=== PATIENT | male | born 2000 | race Caucasian/White ===

== ENCOUNTER → 2018-11-12 | Outpatient (CLI) | payer OTHER ==
--- NOTE | 2018-11-12 10:24 | RADIOLOGY REPORT (SQ) ---
EXAM DESCRIPTION: DUPLEX ART/NATHALY FLOW COMPLETE COMPLETED DATE/TIME: 11/12/2018 9:02 am REASON FOR STUDY: JOSE (I70.1) COMPARISON: None. TECHNIQUE: Realtime and static grayscale images acquired. Selected color Doppler, velocities and spe ctral images recorded. LIMITATIONS: None. FINDINGS: RIGHT KIDNEY: RENAL ARTERY VELOCITIES: 75 cm/sec. Segmental artery velocity 56 cm/sec. RENAL VEIN: Color doppler flow present, patent. VELOCITY RATIO: 0.5. Normal waveforms. KIDNEY: Normal size. No significant pathology. LEFT KIDNEY: RENAL ARTERY VELOCITIES: 76 cm/sec. Segmental artery velocity 39 cm/sec. RENAL VEIN: Color doppler flow present, patent. VELOCITY RATIO: 0.5. Normal waveforms. KIDNEY: Normal size. No significant pathology. BLADDER: Normal. OTHER: No other significant finding. IMPRESSION: NO DOPPLER EVIDENCE OF HEMODYNAMICALLY SIGNIFICANT RENAL ARTERY STENOSIS. COMMENT: NORMAL RENAL ARTERY/AORTA VELOCITY RATIO IS LESS THAN OR EQUAL TO 3.5. TECHNICAL DOCUMENTATION: JOB ID: [id number]- All Rights Reserved Reading location - IP/workstation name: [email or web address]
== END ==
LOC: RAD 07:00
PROVIDERS: ATTEND Internal Medicine Cardiovascular Disease
DX: I70.1 Atherosclerosis of renal artery (principal)
CPT/HCPCS: 93975